=== PATIENT | female | born 1975 ===

== ENCOUNTER → 2017-02-01 | Outpatient (REF) | LOC: WSOH 16:00 | DX: Z02.89 Encounter for other administrative examinations (principal) ==

== ENCOUNTER → 2017-02-17 | Outpatient (REF) | LOC: WSOH 15:29 | DX: Z02.89 Encounter for other administrative examinations (principal) ==

== ENCOUNTER → 2017-03-01 | Outpatient (REF) | LOC: WSOH 17:30 | DX: Z02.89 Encounter for other administrative examinations (principal) ==